=== PATIENT | female | born 2005 ===

== ENCOUNTER → 2024-11-30 14:24 | Outpatient (CLI) | payer OTHER, SELFPAY ==
[2024-11-30 15:26] LABS: Add Manual Diff / Slide Review NO; Hematocrit 31.4 % (36-46); Hemoglobin 11.2 g/dL (12.0-16.0); Lymphocytes Absolute Auto 2600 /uL (1100-4500); Mean Corpuscular HGB Conc 35.6 % (30-36); Mean Corpuscular Hemoglobin 33.0 PG (26-34); Mean Corpuscular Volume 92.7 fL (80-100); Platelet Count 321 X10^3/uL (150-400)
[2024-11-30 15:44] LABS: Natera Collection Specimen Collected
[2024-11-30 16:03] LABS: Appearance Urine UA CLEAR; Bilirubin Urine UA NEGATIVE (NEGATIVE); Color Urine UA YELLOW; Glucose Urine UA NEGATIVE (Negative); Ketones Urine UA NEGATIVE (NEGATIVE); Leukocyte Esterase Urine UA NEGATIVE (NEGATIVE); Nitrite Urine UA NEGATIVE (Negative); Occult Blood Urine UA TRACE-INTACT (Negative); Protein Urine UA NEGATIVE (Negative); Specific Gravity Urine UA 1.020 (1.000-1.035); Urobilinogen Urine UA 1.0 E.U./dL (0.2)
[2024-11-30 16:04] LABS: pH Urine UA 6.5 (4.5-8.0)
[2024-11-30 16:20] LABS: Alanine Aminotransferase 10 IU/L (<35); Albumin 3.9 g/dL (3.5-5.0); Albumin Globulin Ratio 1.3 (1.0-2.8); Alkaline Phosphatase 59 U/L (38-126); Blood Urea Nitrogen 5 mg/dL (7-17); Calcium 9.1 mg/dL (8.4-10.2); Carbon Dioxide 21 mmol/L (22-32); Chloride 105 mmol/L (98-107); Estimated Glomerular Filt Rate > 60 mL/min (>60); Globulin 3.0 g/dL (1.7-4.1); Glucose 97 mg/dL (70-99); HEMOLYSIS < 15 (0-50); Potassium 3.7 mmol/L (3.4-5.1); Sodium 135 mmol/L (137-145); Total Protein 6.9 g/dL (6.3-8.2)
[2024-11-30 16:21] LABS: Hemoglobin A1C% w Est Avg Glu 4.7 % (4.0-6.0)
[2024-11-30 17:44] LABS: Protein (Total) Urine Random 10 mg/dL (0-12); Protein Creatinine Ratio Urine 0.07 GRAM/24H
[2024-11-30 22:11] LABS: HIV 1 & 2 Ab/Ag 4th Gen Combo NEGATIVE (NEGATIVE); Hepatitis B Surface Antigen NEGATIVE s/c (NEGATIVE)
[2024-11-30 22:14] LABS: Hep C Virus Ab w/Reflex Quant NEGATIVE s/c (NEGATIVE)
== END ==
PROVIDERS: PCP Family Medicine; Referring Provider Family Medicine; Visit Provider Family Medicine
DX: O99.210 Obesity complicating pregnancy, unspecified trimester (principal); O99.211 Obesity complicating pregnancy, first trimester; E66.09 Other obesity due to excess calories; L40.9 Psoriasis, unspecified
CPT/HCPCS: 80053; 81003; 82570; 83036; 84156; 85025; 86592; 86762; 86787; 86803; 86850; 86900; 86901; 87086; 87340; 87389

== ENCOUNTER → 2025-02-01 12:05 | Outpatient (CLI) | payer OTHER, SELFPAY ==
[2025-02-01 13:52] LABS: GTT (PREG) 1 Hour PP 50gm Dose 83 mg/dL (76-139)
== END ==
PROVIDERS: PCP Family Medicine; Referring Provider Family Medicine; Visit Provider Family Medicine
DX: Z34.00 Encounter for supervision of normal first pregnancy, unspecified trimester (principal)
CPT/HCPCS: 82950

== ENCOUNTER → 2025-02-04 07:53 | Outpatient (CLI) | payer OTHER, SELFPAY ==
--- NOTE | 2025-02-04 07:53 | DI.US.S_ITS ---
PROCEDURE: US OB >= 14 WEEKS FETUS INDICATIONS: Anatomy Scan OUTSIDE/PRIOR DATING DATA: Last menstrual period (LMP): 09/03/2024. LMP-based estimated date of delivery (SELIN): 06/10/2025. First dating scan (date and location): 11/02/2024. Estimated date of delivery (SELIN) from first dating scan: 06/06/2025. The calculations are made using the clinical SELIN of 06/10/2025. TECHNIQUE: Real-time scanning was performed of the fetus, with image documentation and biometric measurements. Endovaginal scanning: Not performed COMPARISON: None. FINDINGS: General: A single living intrauterine gestation is present. Presentation: Variable. Placenta: Placental position is anterior , without previa. Amniotic fluid index: 14.2 cm, normal range is 5-24 cm. Single deepest vertical pocket is 4.4 cm. heart rate: 145 beats per minute. Maternal cervical canal: 3.7 cm long. Normal lower limit is 2.5 cm. biometrics: Biparietal diameter: 4.7 cm, 20 weeks 2 days Head circumference: 18.1 cm, 20 weeks 3 days Abdominal circumference: 16.7 cm, 21 weeks 5 days Femur length: 3.6 cm, 21 weeks 3 days Clinically estimated gestational age: 22 weeks 0 days Composite gestational age from present scan: 21 weeks 0 days Estimated weight and percentile: 423 g, 18% Anatomic survey: Neuro: Ventricles are non-dilated at less than 10 mm. Cisterna magna is normal at 3-11 mm. Cerebellum is normal in size and morphology. Nuchal skin fold: Normal at less than 6 mm between 14-21 weeks gestational age. Face: Nose and lips, facial profile are normal. Spine: No evidence for spina bifida. Heart: 4-chambered heart is present, with normal ventricular outflow tracts. Diaphragm: Diaphragm is intact. Stomach: Left-sided stomach is present. Kidneys: No hydronephrosis. Normal is less than 5 mm in 2nd trimester, less than 7 mm in 3rd trimester. Cord: 3-vessel cord has orthotopic insertion. Bladder: Normal in size. Extremities: All 4 extremities identified. IMPRESSION: 1. Single live intrauterine consistent with 21 weeks and 0 days. 2. Normal anatomic survey. We strive to produce accurate, complete, and clear reports of imaging services. To assist us in improving patient care, this report was composed using standard report templates and voice recognition software. Therefore, it may contain abnormal punctuation, insertions and/or omissions. Occasional wrong-word or sound-alike substitutions may occur. Though we review the report and make efforts to correct it, we do recommend that the report be read carefully in proper context to recognize any text inaccuracies. Dictated by: Meet Fuller M.D. on 02/04/2025 at 11:37 Approved by: Meet Fuller M.D. on 02/04/2025 at 11:39
== END ==
LOC: US 07:53
PROVIDERS: PCP Family Medicine; Referring Provider Family Medicine; Visit Provider Family Medicine
DX: Z36.89 Encounter for other specified antenatal screening (principal); Z3A.21 21 weeks gestation of pregnancy
CPT/HCPCS: 76811